=== PATIENT | male | born 1970 | race Caucasian/White ===

== ENCOUNTER 2017-09-24 10:50 | Emergency (ER) | payer MEDICAID ==
[~2017-09-24] VITALS: Ht 177.8 cm; Wt 109.3 kg
[~2017-09-24 10:50] MED LIST: CEL20 PO; NIC14 TD; SERO100 PO
[2017-09-24 11:09] VITALS: Ht 177.8 cm; Wt 109.3 kg
[2017-09-24 12:52] VITALS: BP 166/89
== END 2017-09-24 12:52 | disposition home or self-care (01) ==
LOC: ED 10:50
DX: L03.114 Cellulitis of left upper limb (principal); L03.113 Cellulitis of right upper limb; F17.210 Nicotine dependence, cigarettes, uncomplicated; Z88.0 Allergy status to penicillin; Z59.0 Homelessness